=== PATIENT | female | born 2000 | race Caucasian/White ===

== ENCOUNTER 2025-04-01 13:31 | Emergency (ER) | payer OTHER, SELFPAY ==
[2025-04-01 13:41] VITALS: BP 133/79; PULSE 95; RESP 16; TEMP 36.5; O2SAT 100
--- NOTE | 2025-04-01 13:44 | ED_ITS ---
HPI - URI/Sore Throat General Chief Complaint: Upper Respiratory Infection Stated Complaint: CONGESTION/WHEEZING Time Seen by Provider: 04/01/25 13:45 Source: patient and RN notes reviewed Mode of arrival: ambulatory Limitations: no limitations History of Present Illness HPI Narrative: 25-year-old female presents with concern for wheezing at nighttime. She reports when she lays flat she hears a whistling sound and has occasional cough. She reports she takes Claritin daily because she is allergic to her dog. She reports symptoms have worsened over the last few days. She denies symptoms during the day. She denies fever, aches, chills, sweats, runny nose, stuffy nose. MD elicited complaint: cough Related Data Home Medications ?Medication ?Instructions ?Recorded ?Confirmed ?Last Taken ?Type No Home Medications 04/01/25 04/01/25 U nknown History Allergies Allergy/AdvReac Type Severity Reaction Status Date / Time ibuprofen Allergy Intermediate gi Verified 04/01/25 13:48 bleeding when she was 1 yrs old Review of Systems Review of Systems: CONSTITUTIONAL: Denies malaise, chills, sweats, or fever. EYES: Denies visual changes, redness, or discharge. ENT: Denies rhinorrhea, congestion, sinus pain, otalgia and sore throat. CARDIOVASCULAR: Denies chest pain, palpitations, or edema. RESPIRATORY: Reports wheezing and occasional cough. Denies dyspnea. All systems reviewed & are unremarkable except as noted in HPI and below PMFSH Comments At time of signature, agree with nursing past medical, surgical, social and family history. There is no relevant family history pertinent to the presenting complaint Exam Narrative: GENERAL: Well-appearing, well-nourished, and in no acute distress. HEAD: Normocephalic EYES: PERRLA, conjunctivae clear ENT: Nares clear. Mucous membranes moist. TM pearly le with sharp light reflex bilaterally; no tragal tenderness. Oropharynx not erythematous without lesions. Tonsils not enlarged and without exudate, no drooling, no hoarseness, no trismus, uvula midline. NECK: Supple. No lymphadenopathy CHEST: Clear to auscultation, breath sounds equal. No wheezing, rhonchi, rales, or stridor. No respiratory distress, speaks in full sentences. HEART: Regular rate and rhythm. No murmur heard. SKIN: Warm, dry, no rash. NEURO: Alert and oriented x3. PSYCH: Normal mood and affect Course Course Emergency Course: Patient is aware of diagnosis, understands and agrees to treatment plan. Anticipatory guidance given. Patient agrees to follow-up as directed and is aware of reasons to seek care at the emergency department. Portions of this record may have been created with voice recognition software Level of Care: Express Care Visit Vital Signs Vital signs: Vital Signs Temperature 97.7 F 04/01/25 13:41 Pulse Rate 95 04/01/25 13:41 Respiratory Rate 16 04/01/25 13:41 Blood Pressure 133/79 04/01/25 13:41 Pulse Oximetry 100 04/01/25 13:41 Temperature 97.7 F 04/01/25 13:41 Pulse Rate 95 04/01/25 13:41 Respiratory Rate 16 04/01/25 13:41 Blood Pressure 133/79 04/01/25 13:41 Pulse Oximetry 100 04/01/25 13:41 Reviewed. MDM - URI/Sore Throat MDM Narrative Medical decision making narrative: Differential diagnosis considered: Ivey virus, strep pharyngitis, allergic rhinitis, upper respiratory tract infection, sinusitis, rhinosinusitis, nasopharyngitis. viral pharyngitis, otitis media, otitis externa, pneumonia, bronchitis, viral cough syndrome, viral syndrome, and influenza. Exam findings show no acute concerns or changes; patient is non-toxic appearing and is in no distress. Patient is appropriate for outpatient treatment and follow-up. Lab Data Attestation: I reviewed the patient's lab results. Critical Care Time Critical Care Time Critical Care Time: No Discharge Plan Discharge Clinical Impression: Allergic to dogs Patient Disposition: Home Condition: Stable Instructions: Allergies (ED) Additional Instructions: Switch from Claritin to Zyrtec. Take Zyrtec daily. You can also start Flonase nasal spray. Take this in the evening before bed. You can also consider taking Benadryl, 1-2 tabs before bed nightly. If your symptoms persist despite these changes please follow-up with your primary care doctor or return for further evaluation. Patient Language: Spanish Prescriptions: No Action No Home Medications Follow-up/Referrals: Scooby,Kitty Weiss MD [Primary Care Provider] Time of Disposition: 13:54
== END 2025-04-01 13:56 | disposition home or self-care (01) ==
PROVIDERS: Emergency Provider Nurse Practitioner; PCP Family Medicine
DX: J30.81 Allergic rhinitis due to animal (cat) (dog) hair and dander (principal)
CPT/HCPCS: 99202; 99203; G0463